=== PATIENT | male | born 1990 | race Caucasian/White ===

== ENCOUNTER 2016-11-07 16:27 | Emergency (ER) | payer OTHER ==
[2016-11-07] MEDS ORDERED: IBUPROFEN 600 MG TABLET PO ONE (16:42)
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
[2016-11-07] MEDS ORDERED: ACETAMINOPHEN 325 MG TABLET PO ONE (17:21)
[2016-11-07 18:02] VITALS: BP 130/83
--- NOTE | 2016-11-07 22:44 | EKG REPORT ---
SEVERITY:- NORMAL ECG - SINUS RHYTHM : Confirmed by: Tara Ng 07-Nov-2016 22:43:23
== END 2016-11-07 18:06 | disposition home or self-care (01) ==
LOC: ER 16:27
DX: M79.652 Pain in left thigh (principal); M79.651 Pain in right thigh; R07.89 Other chest pain; V87.7XXA Person injured in collision between other specified motor vehicles (traffic), initial encounter
CPT/HCPCS: 71020; 93005; 93010; 99284